=== PATIENT | male | born 1990 | race Caucasian/White ===

== ENCOUNTER 2018-06-06 22:17 | Emergency (ER) | payer OTHER ==
[2018-06-07] MEDS: FAMOTIDINE 20 MG TAB PO (00:02)
[2018-06-07] MEDS: diphenhydrAMINE 50 MG CAP PO (00:02)
[2018-06-07] MEDS: predniSONE 20 MG TAB PO (00:04)
== END 2018-06-07 00:09 | disposition home or self-care (01) ==
LOC: M ED 06-07 00:09
DX: L29.9 Pruritus, unspecified (principal); T62.91XA Toxic effect of unspecified noxious substance eaten as food, accidental (unintentional), initial encounter; Y92.9 Unspecified place or not applicable; Y93.9 Activity, unspecified
CPT/HCPCS: 99283

== ENCOUNTER 2018-10-20 14:40 | Emergency (ER) | payer OTHER ==
[~2018-10-20] VITALS: Ht 172.7 cm; Wt 63.6 kg
[~2018-10-20 14:40] MED LIST: BENA25CA4 PO; PEPC1TAB5 PO; PRED20TA PO
[2018-10-20] MEDS ORDERED: DOXY-350 PO (14:48)
[2018-10-20] MEDS ORDERED: NS 1,000 ML IV ONE (16:00)
[2018-10-20] MEDS ORDERED: CLINDAMYCIN 600 MG in APPROPRIATE DILUENT 1 EA IV ONE (16:00)
[2018-10-20] MEDS ORDERED: diphenhydrAMINE INJ 50MG/ML VIAL (J1200) IV ONE (16:15)
[2018-10-20 16:51] LABS: BASO # 0.1 10^3/uL (0.0-0.2); BASO % 1.4 % (0.0-1.0); EOS # 0.4 10^3/uL (0.0-0.50); EOS % 6.2 % (0.0-3.0); HEMATOCRIT 41.6 % (42.0-52.0); HEMOGLOBIN 14.1 g/dl (13.5-17.5); LYMPH # 2.6 10^3/uL (1.5-6.5); LYMPH % 44.8 % (24.0-44.0); MEAN CORPUSCULAR HEMOGLOBIN 31.1 pg (27.0-33.0); MEAN CORPUSCULAR HGB CONC 33.9 g/dl (32.0-36.5); MEAN CORPUSCULAR VOLUME 91.8 fl (80.0-96.0); MONO # 0.5 10^3/uL (0.0-0.8); MONO % 7.7 % (0.0-5.0); NEUTROPHILS # 2.3 10^3/uL (1.8-7.7); NEUTROPHILS % 39.6 % (36.0-66.0); PLATELET COUNT, AUTOMATED 302 10^3/uL (150-450); RED BLOOD COUNT 4.53 10^6/uL (4.30-6.10); WHITE BLOOD COUNT 5.8 10^3/uL (4.0-10.0)
[2018-10-20 17:14] LABS: ALBUMIN 4.1 GM/DL (3.2-5.2); ALT/SGPT 42 U/L (12-78); BILIRUBIN,DIRECT 0.2 MG/DL (0.0-0.2); BILIRUBIN,TOTAL 0.6 MG/DL (0.2-1.0); BLOOD UREA NITROGEN 10 MG/DL (7-18); CALCIUM LEVEL 8.7 MG/DL (8.5-10.1); CARBON DIOXIDE LEVEL 28 MEQ/L (21-32); CHLORIDE LEVEL 107 MEQ/L (98-107); CREATININE FOR GFR 0.85 MG/DL (0.70-1.30); GLOMERULAR FILTRATION RATE > 60.0 (>60); GLUCOSE, FASTING 83 MG/DL (70-100); POTASSIUM SERUM 4.1 MEQ/L (3.5-5.1); SODIUM LEVEL 141 MEQ/L (136-145)
[2018-10-20 17:15] LABS: ERYTHROCYTE SEDIMENTATION RATE 3 mm/hr (0-15)
[2018-10-20 17:23] LABS: INR 1.01; PROTHROMBIN TIME 13.4 SECONDS (12.1-14.4)
[2018-10-20 17:24] LABS: PARTIAL THROMBOPLASTIN TIME 28.4 SECONDS (25.4-37.6)
[2018-10-20] MEDS ORDERED: FLUC10TA PO (18:03)
[2018-10-20] MEDS ORDERED: CLEO300C2 PO (18:03)
[2018-10-20 18:15] VITALS: BP 119/75
== END 2018-10-20 18:15 | disposition home or self-care (01) ==
LOC: M ED 14:40
DX: L03.317 Cellulitis of buttock (principal); B35.4 Tinea corporis; F17.220 Nicotine dependence, chewing tobacco, uncomplicated
CPT/HCPCS: 36415; 80048; 80076; 83605; 85025; 85610; 85652; 85730; 87040; 96365; 96375; 99284; J1200

== ENCOUNTER → 2018-11-13 | Outpatient (REF) | payer OTHER ==
[~2018-11-13] MED LIST changes: +CLEO300C2 PO; +DOXY-350 PO; +FLUC10TA PO
[2018-11-13 11:24] LABS: SEMEN APPEARANCE OPAQUE (OPAQUE); SEMEN VISCOSITY LIQUID (LIQUID); SEMEN VOLUME 6.8 ml (4.0-5.0)
[2018-11-13 11:25] LABS: SPERM CONCENTRATION 8.2 M/ml (>=15.0); WBC CONCENTRATION >1 M/ml (<=1 M/ml)
== END ==
LOC: M LAB REF 10:13
DX: Z31.41 Encounter for fertility testing (principal)

== ENCOUNTER 2020-06-27 13:02 | Day surgery (SDC) | payer OTHER ==
[~2020-06-27] VITALS: Ht 172.7 cm; Wt 64.9 kg
[~2020-06-27 13:02] MED LIST changes: +LIDOCAINE 2% 100MG/5ML SDV (FOR ANES.) As Ordered ONE; +NS 1,000 ML IV ONE; +PANT40TA29 PO; +propofoL 200 MG/20 ML VIAL As Ordered ONE
[2020-06-27] MEDS ORDERED: propofoL 200 MG/20 ML VIAL As Ordered ONE (13:33)
--- NOTE | 2020-06-27 14:43 | ROOR ---
Patient Name: [place] Causey Procedure Date: 06/27/2020 2:25 PM Date of : 1990 Age: 29 Room: [facility] Gender: Male Note Status: Finalized Procedure: Upper Endoscopy + Biopsies Indications: Epigastric abdominal pain Providers: Darien Fong MD Referring MD: SONIA SCOTT MD Requesting Provider: Medicines: Monitored Anesthesia Care Complications: No immediate complications. Procedure: Pre-Anesthesia Assessment: - The heart rate, respiratory rate, oxygen saturations, blood pressure, adequacy of pulmonary ventilation, and response to care were monitored throughout the procedure. The Endoscope was introduced through the mouth, and advanced to the second part of duodenum. The upper GI endoscopy was accomplished without difficulty. The patient tolerated the procedure well. Findings: The Z-line was regular and was found 35 cm from the incisors. Multiple biopsies were obtained with cold forceps for evaluation to rule out Andujar's Esophagus randomly at the gastroesophageal junction. No other significant abnormalities were identified in a careful examination of the stomach. Biopsies were taken with a cold forceps in the gastric antrum for Helicobacter pylori testing. The exam of the duodenum was otherwise normal. Impression: - Z-line regular, 35 cm from the incisors. - Multiple biopsies were obtained at the gastroesophageal junction. - Biopsies were taken with a cold forceps for Helicobacter pylori testing. Recommendation: - Patient has a contact number available for emergencies. The signs and symptoms of potential delayed complications were discussed with the patient. Return to normal activities tomorrow. Written discharge instructions were provided to the patient. - Discharge patient to home. - Follow an antireflux regimen. - Continue present medications. - Await pathology results. - Telephone GI clinic for pathology results in 1 week. - Return to referring physician. - The findings and recommendations were discussed with the patient. Darien Fong MD Darien Fong MD 06/27/2020 2:43:34 PM Electronically signed by Darien Fong MD Number of Addenda: 0 Note Initiated On: 06/27/2020 2:25 PM Estimated Blood Loss: Estimated blood loss: none.
[2020-06-27 15:10] VITALS: BP 111/59
== END 2020-06-27 15:16 | disposition home or self-care (01) ==
LOC: M OPP 13:02
PROVIDERS: ATTEND Internal Medicine Gastroenterology
DX: R10.13 Epigastric pain (principal); K21.9 Gastro-esophageal reflux disease without esophagitis; F17.220 Nicotine dependence, chewing tobacco, uncomplicated; Z79.899 Other long term (current) drug therapy

== ENCOUNTER 2020-06-29 10:41 | Emergency (ER) | payer OTHER ==
[~2020-06-29] VITALS: Ht 172.7 cm; Wt 65.8 kg
[~2020-06-29 10:41] MED LIST changes: -LIDOCAINE 2% 100MG/5ML SDV (FOR ANES.) As Ordered ONE; -NS 1,000 ML IV ONE; -propofoL 200 MG/20 ML VIAL As Ordered ONE
[2020-06-29 10:42] VITALS: BP 127/61
[2020-06-29] MEDS ORDERED: CYCL-707 (10:52)
[2020-06-29] MEDS ORDERED: NAPR-837 PO (11:52)
== END 2020-06-29 11:59 | disposition home or self-care (01) ==
LOC: M ED 10:41
DX: R10.9 Unspecified abdominal pain (principal); Z79.899 Other long term (current) drug therapy